=== PATIENT | female | born 1985 | race Caucasian/White ===

== ENCOUNTER 2016-03-20 10:22 | Emergency (ER) | payer OTHER ==
[~2016-03-20 10:22] MED LIST: CITA20TA4 PO; DRIS50002 PO; MOBI15TA PO; flexeril PO; no medications
--- NOTE | 2016-03-20 10:56 | EDDOCDS ---
Nurse's Notes [facility] Name: Jane Loredo Age: 30 yrs Sex: Female : 1985 Arrival Date: 03/20/2016 Time: 10:22 Bed TR8 Private MD: [facility] - Adults Diagnosis: Viral infection of unspecified site;Acute pharyngitis Presentation: 03/20 10:26 Presenting complaint: Patient states: "My throat is just burning for the past 2 days. jc4 I'm sick to my stomach and have a headache". Risk factors: Stridor is not present. Drooling is not present. Shortness of breath is not present. Cellulitis is not present. Adult Sepsis Screening: The patient does not have new or worsening altered mentation. Patient's respiratory rate is less than 22. Systolic blood pressure is greater than 100. Patient has a qSOFA score of 0- Negative Sepsis Screen. Suicide/Homicide risk assessment- the patient denies having any suicidal and/or homicidal ideations and does not present with any other emotional, behavioral or mental health complaints. Status: Patient is not a automotive services manager or dependent. Transition of care: patient was not received from another setting of care. 10:26 Acuity: ASIM Level 5 jc4 10:26 Method Of Arrival: Walkin/Carried/Asstd jc4 Triage Assessment: 10:27 General: Appears in no apparent distress. Pain: Pain currently is 9 out of 10 on a pain jc4 scale. HIV screening NA for this visit Offered previously. EENT: Reports pain when swallowing. CARVER HAND: 10:27 LMP 03/07/2016 jc4 Historical: - Allergies: no known allergies; - Home Meds: 1. none - PMHx: Gall Bladder Disease; - PSHx: Tubal ligation; Cholecystectomy (February 2016); - Social history: Smoking status: Patient states was never smoker of tobacco. No barriers to communication noted, The patient speaks fluent Canadian. - Family history: Not pertinent. - : The pt / caregiver states he / she is not on anticoagulants. Home medication list is obtained from the patient. - Exposure Risk Screening:: None identified. Screenin:53 Screening information is obtained from the patient. Primary language is Canadian. Fall dls risk: No risks identified. Assistance ADL's: requires no assistance with activities of daily living. Abuse/DV Screen: The patient / caregiver reports he/she is: not in a situation that causes fear, pain or injury. Nutritional screening: No deficits noted. Advance Directives: Currently, there is no health care proxy. There is no active DNR order. There is no living will. There is no Power of Table Operator. Advance directive information has not previously been placed in an [facility] medical record. home support is adequate. Assessment: 10:53 General: Appears in no apparent distress, well nourished, well groomed, Behavior is dls cooperative. Awake, alert, oriented. Skin warm and dry. Moves all extremities. Bilateral breath sounds clear. Respirations unlabored. Abdomen soft, non-tender. No apparent distress. The patient / caregiver is instructed regarding the plan of care and ED course. Vital Signs: 10:24 BP 127 / 78; Pulse 99; Resp 18; Temp 96.3; Pulse Ox 98% ; Weight 81.65 kg; Height 5 ft. elp 4 in. (162.56 cm); Pain 9/10; 10:24 Body Mass Index 30.90 (81.65 kg, 162.56 cm) elp Vitals: 10:24 Log In Time: March 20, 2016 at 10:21. elp 10:39 Strep Screen is obtained and tested: Negative, a GATSNEG culture is ordered in [facility] jc4 and sent. ED Course: 10:24 Patient visited by Frances Hutton PCA. elp 10:24 [facility] is Private Physician. elp 10:24 Patient moved to Waiting elp 10:26 Patient visited by Frances Hutton PCA. elp 10:26 Patient moved to Pre RCE elp 10:26 Triage Initiated jc4 10:28 Patient moved to Triage 3 jc4 10:38 [facility] btw 10:38 Rosi Mercer MD is Attending Physician. btw 10:38 Patient visited by Harlan Harris PA. btw 10:43 [facility] is Referral Physician. btw 10:45 [facility] Payment Agreement was scanned into [employer] and attached to record. lg 10:51 Patient moved to TR8 dls 10:53 Patient has correct armband on for positive identification. Bed in low position. Call dls light in reach. 10:54 No IV's were initiated during this patient's visit. No procedures done that require dls assistance. Order Results: There are currently no results for this order. Outcome: 10:44 Discharge ordered by Provider. btw 10:53 The following High Risk Discharge criteria are identified: None. Discharged to home dls ambulatory. Condition: stable. Discharge instructions given to patient, Instructed on discharge instructions, follow up and referral plans. medication usage, Demonstrated understanding of instructions, medications, Pt was receptive of discharge instructions/ teaching. No special radiology studies were completed. 10:54 Discharge Assessment: Patient awake, alert and oriented x 3. No cognitive and/or dls functional deficits noted. Patient verbalized understanding of disposition instructions. patient administered narcotics - no. Property sent home with patient. 10:55 Patient left the ED. dls Signatures: Patricia Zambrano, RN RN dls Alex Wick, Lance Reg lg Harlan Harris PA PA btw Castle, Jennifer, HERMINIA RN jc4 Frances Hutton, GEOVANY KNOCKER OUT elp MTDD
--- NOTE | 2016-03-20 10:56 | EDDOCDS ---
Physician Documentation [facility] Name: Jane Loredo Age: 30 yrs Sex: Female : 1985 Arrival Date: 03/20/2016 Time: 10:22 Bed TR8 Private MD: [facility] - Adults Disposition: 03/20/16 10:44 Discharged to Home/Self Care. Impression: Viral infection of unspecified site, Acute pharyngitis. - Condition is Stable. - Discharge Instructions: Pharyngitis, Zxvs-nj-Iuro, Viral Infections, Oedv-Tr-Syid. - Medication Reconciliation, Local Pharmacy Hours form. - Follow up: [facility] - Adults; When: Call to arrange an appointment; Reason: Further diagnostic work-up, Recheck today's complaints, Continuance of care. - Problem is new. - Symptoms are unchanged. Historical: - Allergies: no known allergies; - Home Meds: 1. none - PMHx: Gall Bladder Disease; - PSHx: Tubal ligation; Cholecystectomy (February 2016); - Social history: Smoking status: Patient states was never smoker of tobacco. No barriers to communication noted, The patient speaks fluent Thai. - Family history: Not pertinent. - : The pt / caregiver states he / she is not on anticoagulants. Home medication list is obtained from the patient. - Exposure Risk Screening:: None identified. 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 4 in. (162.56 cm); Pain 9/10; 10:24 Body Mass Index 30.90 (81.65 kg, 162.56 cm) elp MDM: 10:28 Strep Screen, Nursing ordered. btw 10:39 Financial registration complete. lg 10:40 GATS (NEGATIVE STREP SCREEN) Ordered. EDMS 10:45 [facility] Payment Agreement was scanned into [employer] and attached to record. lg Signatures: Dispatcher [employer] EDMS Patricia Zambrano RN RN Alex Weller, Lance Reg lg Harlan Harris PA PA btw Rowan Mohan RN RN jc4 The chart was reviewed and I authenticate all verbal orders and agree with the evaluation and treatment provided.Attachments: 10:45 [facility] Payment Agreement lg MTDD
--- NOTE | 2016-03-22 12:51 | EDDOCDS ---
Physician Documentation [facility] Name: Jane Loredo Age: 30 yrs Sex: Female : 1985 Arrival Date: 03/20/2016 Time: 10:22 Bed TR8 Private MD: [facility] - Adults Disposition: 03/20/16 10:44 Discharged to Home/Self Care. Impression: Viral infection of unspecified site, Acute pharyngitis. - Condition is Stable. - Discharge Instructions: Pharyngitis, Cats-yu-Ebaa, Viral Infections, Zvki-Jm-Jiqy. - Medication Reconciliation, Local Pharmacy Hours form. - Follow up: [facility] - Adults; When: Call to arrange an appointment; Reason: Further diagnostic work-up, Recheck today's complaints, Continuance of care. - Problem is new. - Symptoms are unchanged. Historical: - Allergies: no known allergies; - Home Meds: 1. none - PMHx: Gall Bladder Disease; - PSHx: Tubal ligation; Cholecystectomy (February 2016); - Social history: Smoking status: Patient states was never smoker of tobacco. No barriers to communication noted, The patient speaks fluent Latvian. - Family history: Not pertinent. - : The pt / caregiver states he / she is not on anticoagulants. Home medication list is obtained from the patient. - Exposure Risk Screening:: None identified. 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 4 in. (162.56 cm); Pain 9/10; 10:24 Body Mass Index 30.90 (81.65 kg, 162.56 cm) elp MDM: 10:28 Strep Screen, Nursing ordered. btw 10:39 Financial registration complete. lg 10:40 GATS (NEGATIVE STREP SCREEN) Ordered. EDMS 10:45 [facility] Payment Agreement was scanned into [employer] and attached to record. lg 11:50 T-Sheet-- Draft Copy was scanned into [employer] and attached to record. [facility] Signatures: Dispatcher [employer] EDMS Patricia Zambrano RN Alex Woodward, Reg Reg lg Harlan Harris PA PA btw Castle, Jennifer, RN RN jc4 Brooklyn Levine The chart was reviewed and I authenticate all verbal orders and agree with the evaluation and treatment provided.Attachments: 10:45 [facility] Payment Agreement lg 11:50 T-Sheet-- Draft Copy [facility] MTDD
--- NOTE | 2016-03-22 12:51 | EDDOCDS ---
Physician Documentation [facility] Name: Jane Loredo Age: 30 yrs Sex: Female : 1985 Arrival Date: 03/20/2016 Time: 10:22 Bed TR8 Private MD: [facility] - Adults Disposition: 03/20/16 10:44 Discharged to Home/Self Care. Impression: Viral infection of unspecified site, Acute pharyngitis. - Condition is Stable. - Discharge Instructions: Pharyngitis, Tkbg-fe-Ltaj, Viral Infections, Iddv-La-Oiaw. - Medication Reconciliation, Local Pharmacy Hours form. - Follow up: [facility] - Adults; When: Call to arrange an appointment; Reason: Further diagnostic work-up, Recheck today's complaints, Continuance of care. - Problem is new. - Symptoms are unchanged. Historical: - Allergies: no known allergies; - Home Meds: 1. none - PMHx: Gall Bladder Disease; - PSHx: Tubal ligation; Cholecystectomy (February 2016); - Social history: Smoking status: Patient states was never smoker of tobacco. No barriers to communication noted, The patient speaks fluent Uzbek. - Family history: Not pertinent. - : The pt / caregiver states he / she is not on anticoagulants. Home medication list is obtained from the patient. - Exposure Risk Screening:: None identified. 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 4 in. (162.56 cm); Pain 9/10; 10:24 Body Mass Index 30.90 (81.65 kg, 162.56 cm) elp MDM: 10:28 Strep Screen, Nursing ordered. btw 10:39 Financial registration complete. lg 10:40 GATS (NEGATIVE STREP SCREEN) Ordered. EDMS 10:45 [facility] Payment Agreement was scanned into [employer] and attached to record. lg 11:50 T-Sheet-- Draft Copy was scanned into [employer] and attached to record. [facility] Signatures: Dispatcher [employer] EDMS Patricia Zambrano RN Alex Woodward, Reg Reg lg Harlan Harris PA PA btw Castle, Jennifer, RN RN jc4 Brooklyn Levine The chart was reviewed and I authenticate all verbal orders and agree with the evaluation and treatment provided.Attachments: 10:45 [facility] Payment Agreement lg 11:50 T-Sheet-- Draft Copy [facility] MTDD
--- NOTE | 2016-03-22 12:51 | EDDOCDS ---
Nurse's Notes [facility] Name: Jane Loredo Age: 30 yrs Sex: Female : 1985 Arrival Date: 03/20/2016 Time: 10:22 Bed TR8 Private MD: [facility] - Adults Diagnosis: Viral infection of unspecified site;Acute pharyngitis Presentation: 03/20 10:26 Presenting complaint: Patient states: "My throat is just burning for the past 2 days. jc4 I'm sick to my stomach and have a headache". Risk factors: Stridor is not present. Drooling is not present. Shortness of breath is not present. Cellulitis is not present. Adult Sepsis Screening: The patient does not have new or worsening altered mentation. Patient's respiratory rate is less than 22. Systolic blood pressure is greater than 100. Patient has a qSOFA score of 0- Negative Sepsis Screen. Suicide/Homicide risk assessment- the patient denies having any suicidal and/or homicidal ideations and does not present with any other emotional, behavioral or mental health complaints. Status: Patient is not a foreign exchange services manager or dependent. Transition of care: patient was not received from another setting of care. 10:26 Acuity: ASIM Level 5 jc4 10:26 Method Of Arrival: Walkin/Carried/Asstd jc4 Triage Assessment: 10:27 General: Appears in no apparent distress. Pain: Pain currently is 9 out of 10 on a pain jc4 scale. HIV screening NA for this visit Offered previously. EENT: Reports pain when swallowing. 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 none - PMHx: Gall Bladder Disease; - PSHx: Tubal ligation; Cholecystectomy (February 2016); - Social history: Smoking status: Patient states was never smoker of tobacco. No barriers to communication noted, The patient speaks fluent Danish. - Family history: Not pertinent. - : The pt / caregiver states he / she is not on anticoagulants. Home medication list is obtained from the patient. - Exposure Risk Screening:: None identified. Screenin:53 Screening information is obtained from the patient. Primary language is Danish. Fall dls risk: No risks identified. Assistance ADL's: requires no assistance with activities of daily living. Abuse/DV Screen: The patient / caregiver reports he/she is: not in a situation that causes fear, pain or injury. Nutritional screening: No deficits noted. Advance Directives: Currently, there is no health care proxy. There is no active DNR order. There is no living will. There is no Power of Pattern And Chain Maker. Advance directive information has not previously been placed in an [facility] medical record. home support is adequate. Assessment: 10:53 General: Appears in no apparent distress, well nourished, well groomed, Behavior is dls cooperative. Awake, alert, oriented. Skin warm and dry. Moves all extremities. Bilateral breath sounds clear. Respirations unlabored. Abdomen soft, non-tender. No apparent distress. The patient / caregiver is instructed regarding the plan of care and ED course. Vital Signs: 10:24 BP 127 / 78; Pulse 99; Resp 18; Temp 96.3; Pulse Ox 98% ; Weight 81.65 kg; Height 5 ft. elp 4 in. (162.56 cm); Pain 9/10; 10:24 Body Mass Index 30.90 (81.65 kg, 162.56 cm) elp Vitals: 10:24 Log In Time: March 20, 2016 at 10:21. elp 10:39 Strep Screen is obtained and tested: Negative, a GATSNEG culture is ordered in [facility] jc4 and sent. ED Course: 10:24 Patient visited by Frances Hutton PCA. elp 10:24 [facility] is Private Physician. elp 10:24 Patient moved to Waiting elp 10:26 Patient visited by Frances Hutton PCA. elp 10:26 Patient moved to Pre RCE elp 10:26 Triage Initiated jc4 10:28 Patient moved to Triage 3 jc4 10:38 [facility] btw 10:38 Rosi Mercer MD is Attending Physician. btw 10:38 Patient visited by Harlan Harris PA. btw 10:43 [facility] is Referral Physician. btw 10:45 [facility] Payment Agreement was scanned into [employer] and attached to record. lg 10:51 Patient moved to TR8 dls 10:53 Patient has correct armband on for positive identification. Bed in low position. Call dls light in reach. 10:54 No IV's were initiated during this patient's visit. No procedures done that require dls assistance. 11:50 T-Sheet-- Draft Copy was scanned into [employer] and attached to record. [facility] Order Results: Lab Order: GATS (NEGATIVE STREP SCREEN); SPEC'M 03/20/16 10:30 Test: GATS CULTURE (NEG STREP SCR); Value: GATS RESULT POSITIVE FOR STREP PYOGENES (GROUP A); Abnormal: Abnormal; Status: F Test: GATS CULTURE (NEG STREP SCR); Value: ORGANISM 1: STREPTOCOCCUS PYOGENES GRP A; Status: F Test: GATS CULTURE (NEG STREP SCR); Value: STREPTOCOCCUS PYOGENES GRP A; Status: F Test: GATS CULTURE (NEG STREP SCR); Value: QUANTITY OF GROWTH HEAVY; Status: F Outcome: 10:44 Discharge ordered by Provider. btw 10:53 The following High Risk Discharge criteria are identified: None. Discharged to home dls ambulatory. Condition: stable. Discharge instructions given to patient, Instructed on discharge instructions, follow up and referral plans. medication usage, Demonstrated understanding of instructions, medications, Pt was receptive of discharge instructions/ teaching. No special radiology studies were completed. 10:54 Discharge Assessment: Patient awake, alert and oriented x 3. No cognitive and/or dls functional deficits noted. Patient verbalized understanding of disposition instructions. patient administered narcotics - no. Property sent home with patient. 10:55 Patient left the ED. dls Addendum: 03/22/2016 12:49 Narrative: Throat culture results reviewed with Dr. Mendieta and Rx written for Amoxil kcs 500 mg TID x 10 days - message left at patient's home ([phone]) for patient to call us so we can call this to the pharmacy of her choice. Signatures: Hiral Guerra RN RN kcs Scott, Debra, RN RN dls Ganter, LoriLee, Harlan Goldberg lg, PA PA btw Castle, Jennifer, RN RN jc4 Frances Hutton, GEOVANY BEEF TAGGER Brooklyn Moon MTDD
--- NOTE | 2016-03-22 12:57 | EDDOCDS ---
Physician Documentation [facility] Name: Jane Loredo Age: 30 yrs Sex: Female : 1985 Arrival Date: 03/20/2016 Time: 10:22 Bed TR8 Private MD: [facility] - Adults Disposition: 03/20/16 10:44 Discharged to Home/Self Care. Impression: Viral infection of unspecified site, Acute pharyngitis. - Condition is Stable. - Discharge Instructions: Pharyngitis, Anul-sg-Anbt, Viral Infections, Lzpf-Vq-Sygu. - Medication Reconciliation, Local Pharmacy Hours form. - Follow up: [facility] - Adults; When: Call to arrange an appointment; Reason: Further diagnostic work-up, Recheck today's complaints, Continuance of care. - Problem is new. - Symptoms are unchanged. Historical: - Allergies: no known allergies; - Home Meds: 1. none - PMHx: Gall Bladder Disease; - PSHx: Tubal ligation; Cholecystectomy (February 2016); - Social history: Smoking status: Patient states was never smoker of tobacco. No barriers to communication noted, The patient speaks fluent Faroese. - Family history: Not pertinent. - : The pt / caregiver states he / she is not on anticoagulants. Home medication list is obtained from the patient. - Exposure Risk Screening:: None identified. 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 4 in. (162.56 cm); Pain 9/10; 10:24 Body Mass Index 30.90 (81.65 kg, 162.56 cm) elp MDM: 10:28 Strep Screen, Nursing ordered. btw 10:39 Financial registration complete. lg 10:40 GATS (NEGATIVE STREP SCREEN) Ordered. EDMS 10:45 [facility] Payment Agreement was scanned into [employer] and attached to record. lg 11:50 T-Sheet-- Draft Copy was scanned into [employer] and attached to record. [facility] Signatures: Dispatcher [employer] EDMS Patricia Zambrano RN Alex Woodward, Reg Reg lg Harlan Harris PA PA btw Castle, Jennifer, RN RN jc4 Brooklyn Levine The chart was reviewed and I authenticate all verbal orders and agree with the evaluation and treatment provided.Attachments: 10:45 [facility] Payment Agreement lg 11:50 T-Sheet-- Draft Copy [facility] MTDD
--- NOTE | 2016-03-22 12:57 | EDDOCDS ---
Physician Documentation [facility] Name: Jane Loredo Age: 30 yrs Sex: Female : 1985 Arrival Date: 03/20/2016 Time: 10:22 Bed TR8 Private MD: [facility] - Adults Disposition: 03/20/16 10:44 Discharged to Home/Self Care. Impression: Viral infection of unspecified site, Acute pharyngitis. - Condition is Stable. - Discharge Instructions: Pharyngitis, Tpwd-zp-Wasx, Viral Infections, Rnqx-Ri-Qppz. - Medication Reconciliation, Local Pharmacy Hours form. - Follow up: [facility] - Adults; When: Call to arrange an appointment; Reason: Further diagnostic work-up, Recheck today's complaints, Continuance of care. - Problem is new. - Symptoms are unchanged. Historical: - Allergies: no known allergies; - Home Meds: 1. none - PMHx: Gall Bladder Disease; - PSHx: Tubal ligation; Cholecystectomy (February 2016); - Social history: Smoking status: Patient states was never smoker of tobacco. No barriers to communication noted, The patient speaks fluent Korean. - Family history: Not pertinent. - : The pt / caregiver states he / she is not on anticoagulants. Home medication list is obtained from the patient. - Exposure Risk Screening:: None identified. 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 4 in. (162.56 cm); Pain 9/10; 10:24 Body Mass Index 30.90 (81.65 kg, 162.56 cm) elp MDM: 10:28 Strep Screen, Nursing ordered. btw 10:39 Financial registration complete. lg 10:40 GATS (NEGATIVE STREP SCREEN) Ordered. EDMS 10:45 [facility] Payment Agreement was scanned into [employer] and attached to record. lg 11:50 T-Sheet-- Draft Copy was scanned into [employer] and attached to record. [facility] Signatures: Dispatcher [employer] EDMS Patricia Zambrano RN Alex Woodward, Reg Reg lg Harlan Harris PA PA btw Castle, Jennifer, RN RN jc4 Brooklyn Levine The chart was reviewed and I authenticate all verbal orders and agree with the evaluation and treatment provided.Attachments: 10:45 [facility] Payment Agreement lg 11:50 T-Sheet-- Draft Copy [facility] MTDD
--- NOTE | 2016-03-22 12:57 | EDDOCDS ---
Nurse's Notes [facility] Name: Jane Loredo Age: 30 yrs Sex: Female : 1985 Arrival Date: 03/20/2016 Time: 10:22 Bed TR8 Private MD: [facility] - Adults Diagnosis: Viral infection of unspecified site;Acute pharyngitis Presentation: 03/20 10:26 Presenting complaint: Patient states: "My throat is just burning for the past 2 days. jc4 I'm sick to my stomach and have a headache". Risk factors: Stridor is not present. Drooling is not present. Shortness of breath is not present. Cellulitis is not present. Adult Sepsis Screening: The patient does not have new or worsening altered mentation. Patient's respiratory rate is less than 22. Systolic blood pressure is greater than 100. Patient has a qSOFA score of 0- Negative Sepsis Screen. Suicide/Homicide risk assessment- the patient denies having any suicidal and/or homicidal ideations and does not present with any other emotional, behavioral or mental health complaints. Status: Patient is not a financial service representative or dependent. Transition of care: patient was not received from another setting of care. 10:26 Acuity: ASIM Level 5 jc4 10:26 Method Of Arrival: Walkin/Carried/Asstd jc4 Triage Assessment: 10:27 General: Appears in no apparent distress. Pain: Pain currently is 9 out of 10 on a pain jc4 scale. HIV screening NA for this visit Offered previously. EENT: Reports pain when swallowing. 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 none - PMHx: Gall Bladder Disease; - PSHx: Tubal ligation; Cholecystectomy (February 2016); - Social history: Smoking status: Patient states was never smoker of tobacco. No barriers to communication noted, The patient speaks fluent [place] Islander. - Family history: Not pertinent. - : The pt / caregiver states he / she is not on anticoagulants. Home medication list is obtained from the patient. - Exposure Risk Screening:: None identified. Screenin:53 Screening information is obtained from the patient. Primary language is [place] Islander. Fall dls risk: No risks identified. Assistance ADL's: requires no assistance with activities of daily living. Abuse/DV Screen: The patient / caregiver reports he/she is: not in a situation that causes fear, pain or injury. Nutritional screening: No deficits noted. Advance Directives: Currently, there is no health care proxy. There is no active DNR order. There is no living will. There is no Power of Director Foundation. Advance directive information has not previously been placed in an [facility] medical record. home support is adequate. Assessment: 10:53 General: Appears in no apparent distress, well nourished, well groomed, Behavior is dls cooperative. Awake, alert, oriented. Skin warm and dry. Moves all extremities. Bilateral breath sounds clear. Respirations unlabored. Abdomen soft, non-tender. No apparent distress. The patient / caregiver is instructed regarding the plan of care and ED course. Vital Signs: 10:24 BP 127 / 78; Pulse 99; Resp 18; Temp 96.3; Pulse Ox 98% ; Weight 81.65 kg; Height 5 ft. elp 4 in. (162.56 cm); Pain 9/10; 10:24 Body Mass Index 30.90 (81.65 kg, 162.56 cm) elp Vitals: 10:24 Log In Time: March 20, 2016 at 10:21. elp 10:39 Strep Screen is obtained and tested: Negative, a GATSNEG culture is ordered in [facility] jc4 and sent. ED Course: 10:24 Patient visited by Frances Hutton PCA. elp 10:24 [facility] is Private Physician. elp 10:24 Patient moved to Waiting elp 10:26 Patient visited by Frances Hutton PCA. elp 10:26 Patient moved to Pre RCE elp 10:26 Triage Initiated jc4 10:28 Patient moved to Triage 3 jc4 10:38 [facility] btw 10:38 Rosi Mercer MD is Attending Physician. btw 10:38 Patient visited by Harlan Harris PA. btw 10:43 [facility] is Referral Physician. btw 10:45 [facility] Payment Agreement was scanned into [email or web address] and attached to record. lg 10:51 Patient moved to TR8 dls 10:53 Patient has correct armband on for positive identification. Bed in low position. Call dls light in reach. 10:54 No IV's were initiated during this patient's visit. No procedures done that require dls assistance. 11:50 T-Sheet-- Draft Copy was scanned into [email or web address] and attached to record. [facility] Order Results: Lab Order: GATS (NEGATIVE STREP SCREEN); SPEC'M 03/20/16 10:30 Test: GATS CULTURE (NEG STREP SCR); Value: GATS RESULT POSITIVE FOR STREP PYOGENES (GROUP A); Abnormal: Abnormal; Status: F Test: GATS CULTURE (NEG STREP SCR); Value: ORGANISM 1: STREPTOCOCCUS PYOGENES GRP A; Status: F Test: GATS CULTURE (NEG STREP SCR); Value: STREPTOCOCCUS PYOGENES GRP A; Status: F Test: GATS CULTURE (NEG STREP SCR); Value: QUANTITY OF GROWTH HEAVY; Status: F Outcome: 10:44 Discharge ordered by Provider. bt 10:53 The following High Risk Discharge criteria are identified: None. Discharged to home dls ambulatory. Condition: stable. Discharge instructions given to patient, Instructed on discharge instructions, follow up and referral plans. medication usage, Demonstrated understanding of instructions, medications, Pt was receptive of discharge instructions/ teaching. No special radiology studies were completed. 10:54 Discharge Assessment: Patient awake, alert and oriented x 3. No cognitive and/or dls functional deficits noted. Patient verbalized understanding of disposition instructions. patient administered narcotics - no. Property sent home with patient. 10:55 Patient left the ED. dls Addendum: 03/22/2016 12:49 Narrative: Throat culture results reviewed with Dr. Mendieta and Rx written for Amoxil kcs 500 mg TID x 10 days - message left at patient's home ([phone]) for patient to call us so we can call this to the pharmacy of her choice. 12:54 Narrative: Patient called back, given results and requests [facility] in [facility]. kcs Signatures: Hiral Guerra RN RN kcs Scott, Debra, RN RN dls Ganter, LoriLee, Harlan Goldberg lg, PA PA btw Castle, Jennifer, RN RN jc4 Frances Hutton, WELL DIGGER WELL DIGGER phoebep [place] [facility] MTDD
--- NOTE | 2016-03-23 10:50 | EDDOCDS ---
Nurse's Notes [facility] Name: Jane Loredo Age: 30 yrs Sex: Female : 1985 Arrival Date: 03/20/2016 Time: 10:22 Bed TR8 Private MD: [facility] - Adults Diagnosis: Viral infection of unspecified site;Acute pharyngitis Presentation: 03/20 10:26 Presenting complaint: Patient states: "My throat is just burning for the past 2 days. jc4 I'm sick to my stomach and have a headache". Risk factors: Stridor is not present. Drooling is not present. Shortness of breath is not present. Cellulitis is not present. Adult Sepsis Screening: The patient does not have new or worsening altered mentation. Patient's respiratory rate is less than 22. Systolic blood pressure is greater than 100. Patient has a qSOFA score of 0- Negative Sepsis Screen. Suicide/Homicide risk assessment- the patient denies having any suicidal and/or homicidal ideations and does not present with any other emotional, behavioral or mental health complaints. Status: Patient is not a in shop service technician or dependent. Transition of care: patient was not received from another setting of care. 10:26 Acuity: ASIM Level 5 jc4 10:26 Method Of Arrival: Walkin/Carried/Asstd jc4 Triage Assessment: 10:27 General: Appears in no apparent distress. Pain: Pain currently is 9 out of 10 on a pain jc4 scale. HIV screening NA for this visit Offered previously. EENT: Reports pain when swallowing. 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 none - PMHx: Gall Bladder Disease; - PSHx: Tubal ligation; Cholecystectomy (February 2016); - Social history: Smoking status: Patient states was never smoker of tobacco. No barriers to communication noted, The patient speaks fluent Bhutanese. - Family history: Not pertinent. - : The pt / caregiver states he / she is not on anticoagulants. Home medication list is obtained from the patient. - Exposure Risk Screening:: None identified. Screenin:53 Screening information is obtained from the patient. Primary language is Bhutanese. Fall dls risk: No risks identified. Assistance ADL's: requires no assistance with activities of daily living. Abuse/DV Screen: The patient / caregiver reports he/she is: not in a situation that causes fear, pain or injury. Nutritional screening: No deficits noted. Advance Directives: Currently, there is no health care proxy. There is no active DNR order. There is no living will. There is no Power of Marina Manager. Advance directive information has not previously been placed in an [facility] medical record. home support is adequate. Assessment: 10:53 General: Appears in no apparent distress, well nourished, well groomed, Behavior is dls cooperative. Awake, alert, oriented. Skin warm and dry. Moves all extremities. Bilateral breath sounds clear. Respirations unlabored. Abdomen soft, non-tender. No apparent distress. The patient / caregiver is instructed regarding the plan of care and ED course. Vital Signs: 10:24 BP 127 / 78; Pulse 99; Resp 18; Temp 96.3; Pulse Ox 98% ; Weight 81.65 kg; Height 5 ft. elp 4 in. (162.56 cm); Pain 9/10; 10:24 Body Mass Index 30.90 (81.65 kg, 162.56 cm) elp Vitals: 10:24 Log In Time: March 20, 2016 at 10:21. elp 10:39 Strep Screen is obtained and tested: Negative, a GATSNEG culture is ordered in [facility] jc4 and sent. ED Course: 10:24 Patient visited by Frances Hutton PCA. elp 10:24 [facility] is Private Physician. elp 10:24 Patient moved to Waiting elp 10:26 Patient visited by Frances Hutton PCA. elp 10:26 Patient moved to Pre RCE elp 10:26 Triage Initiated jc4 10:28 Patient moved to Triage 3 jc4 10:38 [facility] Harris [facility]. btw 10:38 Rosi Mercer MD is Attending Physician. btw 10:38 Patient visited by Harlan Harris PA. btw 10:43 [facility] is Referral Physician. btw 10:45 [facility] Payment Agreement was scanned into Trump[employer] and attached to record. lg 10:51 Patient moved to TR8 dls 10:53 Patient has correct armband on for positive identification. Bed in low position. Call dls light in reach. 10:54 No IV's were initiated during this patient's visit. No procedures done that require dls assistance. 11:50 T-Sheet-- Draft Copy was scanned into [employer] and attached to record. [facility] Order Results: Lab Order: GATS (NEGATIVE STREP SCREEN); SPEC'M 03/20/16 10:30 Test: GATS CULTURE (NEG STREP SCR); Value: GATS RESULT POSITIVE FOR STREP PYOGENES (GROUP A); Abnormal: Abnormal; Status: F Test: GATS CULTURE (NEG STREP SCR); Value: ORGANISM 1: STREPTOCOCCUS PYOGENES GRP A; Status: F Test: GATS CULTURE (NEG STREP SCR); Value: STREPTOCOCCUS PYOGENES GRP A; Status: F Test: GATS CULTURE (NEG STREP SCR); Value: QUANTITY OF GROWTH HEAVY; Status: F Outcome: 10:44 Discharge ordered by Provider. bt 10:53 The following High Risk Discharge criteria are identified: None. Discharged to home dls ambulatory. Condition: stable. Discharge instructions given to patient, Instructed on discharge instructions, follow up and referral plans. medication usage, Demonstrated understanding of instructions, medications, Pt was receptive of discharge instructions/ teaching. No special radiology studies were completed. 10:54 Discharge Assessment: Patient awake, alert and oriented x 3. No cognitive and/or dls functional deficits noted. Patient verbalized understanding of disposition instructions. patient administered narcotics - no. Property sent home with patient. 10:55 Patient left the ED. dls Addendum: 03/22/2016 12:49 Narrative: Throat culture results reviewed with Dr. Mendieta and Rx written for Amoxil kcs 500 mg TID x 10 days - message left at patient's home ([phone]) for patient to call us so we can call this to the pharmacy of her choice. 12:54 Narrative: Patient called back, given results and requests [facility] in [facility]. kcs Signatures: Hiral Guerra RN RN kcs Scott, Debra, RN RN dls Ganter, LoriLee, Harlan Goldberg lg, PA PA btw Castle, Jennifer, RN RN jc4 Frances Hutton, APPLIANCE TECHNICIAN APPLIANCE TECHNICIAN phoebep [place] Levine [facility] Chart Complete MTDD
--- NOTE | 2016-03-23 10:50 | EDDOCDS ---
Physician Documentation [facility] Name: Jaen Loredo Age: 30 yrs Sex: Female : 1985 Arrival Date: 03/20/2016 Time: 10:22 Bed TR8 Private MD: [facility] - Adults Disposition: 03/20/16 10:44 Discharged to Home/Self Care. Impression: Viral infection of unspecified site, Acute pharyngitis. - Condition is Stable. - Discharge Instructions: Pharyngitis, Bjic-[id number], Viral Infections, Anef-Ci-Nlay. - Medication Reconciliation, Local Pharmacy Hours form. - Follow up: [facility] - Adults; When: Call to arrange an appointment; Reason: Further diagnostic work-up, Recheck today's complaints, Continuance of care. - Problem is new. - Symptoms are unchanged. Historical: - Allergies: no known allergies; - Home Meds: 1. none - PMHx: Gall Bladder Disease; - PSHx: Tubal ligation; Cholecystectomy (February 2016); - Social history: Smoking status: Patient states was never smoker of tobacco. No barriers to communication noted, The patient speaks fluent Serbian. - Family history: Not pertinent. - : The pt / caregiver states he / she is not on anticoagulants. Home medication list is obtained from the patient. - Exposure Risk Screening:: None identified. 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 4 in. (162.56 cm); Pain 9/10; 10:24 Body Mass Index 30.90 (81.65 kg, 162.56 cm) elp MDM: 10:28 Strep Screen, Nursing ordered. btw 10:39 Financial registration complete. lg 10:40 GATS (NEGATIVE STREP SCREEN) Ordered. EDMS 10:45 [facility] Payment Agreement was scanned into Vill[employer] and attached to record. lg 11:50 T-Sheet-- Draft Copy was scanned into Vill[employer] and attached to record. [facility] Signatures: Dispatcher Med[employer] EDMS Patricia Zambrano RN Alex Woodward, Reg Reg lg Harlan Harris PA PA btw Castle, Jennifer, RN RN jc4 [place] Levine The chart was reviewed and I authenticate all verbal orders and agree with the evaluation and treatment provided.Attachments: 10:45 [facility] Payment Agreement lg 11:50 T-Sheet-- Draft Copy [facility] Chart Complete MTDD
--- NOTE | 2016-03-23 10:51 | EDDOCDS ---
Physician Documentation [facility] Name: Jane Loredo Age: 30 yrs Sex: Female : 1985 Arrival Date: 03/20/2016 Time: 10:22 Bed TR8 Private MD: [facility] - Adults Disposition: 03/20/16 10:44 Discharged to Home/Self Care. Impression: Viral infection of unspecified site, Acute pharyngitis. - Condition is Stable. - Discharge Instructions: Pharyngitis, Jkpp-[id number], Viral Infections, Sebr-Cq-Ddjd. - Medication Reconciliation, Local Pharmacy Hours form. - Follow up: [facility] - Adults; When: Call to arrange an appointment; Reason: Further diagnostic work-up, Recheck today's complaints, Continuance of care. - Problem is new. - Symptoms are unchanged. Historical: - Allergies: no known allergies; - Home Meds: 1. none - PMHx: Gall Bladder Disease; - PSHx: Tubal ligation; Cholecystectomy (February 2016); - Social history: Smoking status: Patient states was never smoker of tobacco. No barriers to communication noted, The patient speaks fluent Spanish. - Family history: Not pertinent. - : The pt / caregiver states he / she is not on anticoagulants. Home medication list is obtained from the patient. - Exposure Risk Screening:: None identified. 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 4 in. (162.56 cm); Pain 9/10; 10:24 Body Mass Index 30.90 (81.65 kg, 162.56 cm) elp MDM: 10:28 Strep Screen, Nursing ordered. btw 10:39 Financial registration complete. lg 10:40 GATS (NEGATIVE STREP SCREEN) Ordered. EDMS 10:45 [facility] Payment Agreement was scanned into Palette and attached to record. lg 11:50 T-Sheet-- Draft Copy was scanned into Palette and attached to record. [facility] Signatures: Dispatcher [employer] EDMS Patricia Zambrano RN Alex Woodward, Reg Reg lg Harlan Harris PA PA btw Castle, Jennifer, RN RN jc4 [place] Levine The chart was reviewed and I authenticate all verbal orders and agree with the evaluation and treatment provided.Attachments: 10:45 [facility] Payment Agreement lg 11:50 T-Sheet-- Draft Copy [facility] Chart Complete MTDD
== END 2016-03-20 10:55 | disposition home or self-care (01) ==
LOC: M ED 10:22
DX: J02.9 Acute pharyngitis, unspecified (principal); B34.9 Viral infection, unspecified; F17.210 Nicotine dependence, cigarettes, uncomplicated

== ENCOUNTER 2016-04-25 13:38 | Emergency (ER) | payer OTHER ==
[2016-04-25] MEDS ORDERED: GI COCKTAIL 50ML BTL(HYOSCYAMINE/MAALOX/LIDOCAINE VISCOUS)(1:3:1) As Ordered ONE (14:02)
--- NOTE | 2016-04-25 14:22 | EDDOCDS ---
Nurse's Notes [facility] Name: Jane Loredo Age: 30 yrs Sex: Female : 1985 Arrival Date: 04/25/2016 Time: 13:38 Bed TR7 Private MD: Diagnosis: Abdominal and pelvic pain-epigastric;Gastro-esophageal reflux disease Presentation: 04/25 13:41 Presenting complaint: Patient states: abdominal pain for 4 days. denies rs3 vomiting/diarrhea. radiates to lower back. Risk factors: the patient reports no vaginal bleeding. Adult Sepsis Screening: The patient does not have new or worsening altered mentation. Patient's respiratory rate is less than 22. Systolic blood pressure is greater than 100. Patient has a qSOFA score of 0- Negative Sepsis Screen. Suicide/Homicide risk assessment- the patient denies having any suicidal and/or homicidal ideations and does not present with any other emotional, behavioral or mental health complaints. Status: Patient is not a telephone answering service operator or dependent. Transition of care: patient was not received from another setting of care. 13:41 Acuity: ASIM Level 3 rs3 13:41 Method Of Arrival: Walkin/Carried/Asstd rs3 Triage Assessment: 13:43 General: Appears in no apparent distress. Pain: Location: abdomen. HIV screening NA for rs3 this visit Offered previously. GI: Reports lower abdominal pain, upper abd pain. Historical: - Allergies: no known allergies; - Home Meds: 1. none - PMHx: none; - PSHx: Tubal ligation; Cholecystectomy (February 2016); - Social history: Smoking status: Patient states was never smoker of tobacco. No barriers to communication noted, The patient speaks fluent Yemeni. - Family history: Not pertinent. - : The pt / caregiver states he / she is not on anticoagulants. Home medication list is obtained from the patient. - Exposure Risk Screening:: None identified. Screenin:19 Screening information is obtained from the patient. Fall risk: No risks identified. pml Assistance ADL's: requires no assistance with activities of daily living. Abuse/DV Screen: The patient / caregiver reports he/she is: not in a situation that causes fear, pain or injury. Nutritional screening: No deficits noted. Advance Directives: Currently, there is no health care proxy. home support is adequate. Assessment: 14:05 General: Appears in no apparent distress, Behavior is appropriate for age, cooperative. pml Pain: Location: abdomen Pain currently is 6 out of 10 on a pain scale. Neurological: Level of Consciousness is awake, alert, Oriented to person, place, time. Cardiovascular: Capillary refill < 3 seconds. Respiratory: Airway is patent Respiratory effort is even, unlabored. GI: Abdomen is non- distended obese, Bowel sounds present X 4 quads. Abd is soft X 4 quads. Derm: Skin is pink, warm & dry. Vital Signs: 13:40 BP 117 / 76 RA Sitting (auto/lg); Pulse 85; Resp 18; Temp 98.5; Pulse Ox 98% on R/A; bnb Weight 81.65 kg; Height 5 ft. 4 in. (162.56 cm); Pain 7/10; 13:40 Body Mass Index 30.90 (81.65 kg, 162.56 cm) bnb Vitals: 13:40 Log In Time: April 25, 2016 at 13:38. bnb ED Course: 13:39 Patient visited by Jenifer Duarte PCA. bnb 13:39 Patient moved to Waiting bnb 13:41 Patient visited by Jenifer Duarte PCA. bnb 13:41 Patient moved to Pre RCE bnb 13:42 Triage Initiated rs3 13:43 Patient moved to Triage 3 rs3 13:48 [facility] Hammond [facility] cc10 13:48 Rosi Mercer MD is Attending Physician. cc10 13:55 Patient visited by Eliazar Hammond PA-C. cc10 13:55 Patient visited by Eliazar Hammond PA-C. cc10 14:08 Patient moved to TR7 ar3 14:19 The patient / caregiver is instructed regarding the plan of care and ED course. Patient pml has correct armband on for positive identification. Bed in low position. Call light in reach. 14:19 No IV's were initiated during this patient's visit. No procedures done that require pml assistance. Administered Medications: 14:04 Drug: GI Cocktail - (Alum-Mag Hydroxide-Simeth Suspension 225 mg-200 mg-25 mg/5 mL 30 pml ml, Lidocaine Liquid 2 % 10 ml, Hyoscyamine Liquid 10 ml) Route: PO; Order Results: There are currently no results for this order. Outcome: 14:00 Discharge ordered by Provider. cc10 14:19 Discharge Assessment: Patient awake, alert and oriented x 3. No cognitive and/or pml functional deficits noted. Patient verbalized understanding of disposition instructions. patient administered narcotics - no. The following High Risk Discharge criteria are identified: None. Discharged to home ambulatory. Condition: good Condition: stable. Discharge instructions given to patient, Instructed on discharge instructions, follow up and referral plans. medication usage, Demonstrated understanding of instructions, medications, Pt was receptive of discharge instructions/ teaching. No special radiology studies were completed. Property sent home with patient. 14:20 Patient left the ED. pml Signatures: Shantel BradenRN RN rs3 Danii Ahn, TITLE INVESTIGATOR TITLE INVESTIGATOR ar3 Marzena StormRN RN pml Eliazar Hammond, PA-C PA-C cc10 Jenifer Duarte, TITLE INVESTIGATOR TITLE INVESTIGATOR bnb MTDD
--- NOTE | 2016-04-25 14:22 | EDDOCDS ---
Physician Documentation [facility] Name: Jane Loredo Age: 30 yrs Sex: Female : 1985 Arrival Date: 04/25/2016 Time: 13:38 Bed TR7 Private MD: Disposition: 04/25/16 14:00 Discharged to Home/Self Care. Impression: Abdominal and pelvic pain - epigastric, Gastro-esophageal reflux disease. - Condition is Stable. - Discharge Instructions: Gastroesophageal Reflux Disease, Adult. - Prescriptions for Zantac 300 mg Oral Tablet - take 1 tablet by ORAL route At bedtime; 30 tablet. - Local Pharmacy Hours form. - Follow up: Private Physician; When: Call to arrange an appointment; Reason: Wound/Symptom Recheck, Recheck today's complaints, Worsening of conditions, Continuance of care. - Problem is an ongoing problem. - Symptoms are unchanged. Historical: - Allergies: no known allergies; - Home Meds: 1. none - PMHx: none; - PSHx: Tubal ligation; Cholecystectomy (February 2016); - Social history: Smoking status: Patient states was never smoker of tobacco. No barriers to communication noted, The patient speaks fluent Kitt[place]. - Family history: Not pertinent. - : The pt / caregiver states he / she is not on anticoagulants. Home medication list is obtained from the patient. - Exposure Risk Screening:: None identified. Vital Signs: 04/25 13:40 BP 117 / 76 RA Sitting (auto/lg); Pulse 85; Resp 18; Temp 98.5; Pulse Ox 98% on R/A; bnb Weight 81.65 kg / 180.01 lbs; Height 5 ft. 4 in. (162.56 cm); Pain 7/10; 13:40 Body Mass Index 30.90 (81.65 kg, 162.56 cm) bnb MDM: 13:59 GI Cocktail - (Alum-Mag Hydroxide-Simeth 30 ml, Lidocaine 10 ml, Hyoscyamine 10 ml) PO cc10 once; Pre-mixed 50mL unit dose ordered. 14:06 Financial registration complete. mm15 Administered Medications: 14:04 Drug: GI Cocktail - (Alum-Mag Hydroxide-Simeth Suspension 225 mg-200 mg-25 mg/5 mL 30 pml ml, Lidocaine Liquid 2 % 10 ml, Hyoscyamine Liquid 10 ml) Route: PO; Signatures: Shantel Braden RN RN rs3 Marzena Storm RN RN pml Bobbi Chang mm15 Eliazar Hammond, ANA PEREZ cc10 MTDD
--- NOTE | 2016-04-27 15:22 | EDDOCDS ---
Physician Documentation [facility] Name: Jane Loredo Age: 30 yrs Sex: Female : 1985 Arrival Date: 04/25/2016 Time: 13:38 Bed TR7 Private MD: Disposition: 04/25/16 14:00 Discharged to Home/Self Care. Impression: Abdominal and pelvic pain - epigastric, Gastro-esophageal reflux disease. - Condition is Stable. - Discharge Instructions: Gastroesophageal Reflux Disease, Adult. - Prescriptions for Zantac 300 mg Oral Tablet - take 1 tablet by ORAL route At bedtime; 30 tablet. - Local Pharmacy Hours form. - Follow up: Private Physician; When: Call to arrange an appointment; Reason: Wound/Symptom Recheck, Recheck today's complaints, Worsening of conditions, Continuance of care. - Problem is an ongoing problem. - Symptoms are unchanged. Historical: - Allergies: no known allergies; - Home Meds: 1. none - PMHx: none; - PSHx: Tubal ligation; Cholecystectomy (February 2016); - Social history: Smoking status: Patient states was never smoker of tobacco. No barriers to communication noted, The patient speaks fluent [place]an. - Family history: Not pertinent. - : The pt / caregiver states he / she is not on anticoagulants. Home medication list is obtained from the patient. - Exposure Risk Screening:: None identified. Vital Signs: 04/25 13:40 BP 117 / 76 RA Sitting (auto/lg); Pulse 85; Resp 18; Temp 98.5; Pulse Ox 98% on R/A; bnb Weight 81.65 kg / 180.01 lbs; Height 5 ft. 4 in. (162.56 cm); Pain 7/10; 13:40 Body Mass Index 30.90 (81.65 kg, 162.56 cm) bnb MDM: 13:59 GI Cocktail - (Alum-Mag Hydroxide-Simeth 30 ml, Lidocaine 10 ml, Hyoscyamine 10 ml) PO cc10 once; Pre-mixed 50mL unit dose ordered. 14:06 Financial registration complete. mm15 14:21 [facility] Payment Agreement was scanned into [employer] and attached to record. mm15 19:09 T-Sheet-- Draft Copy was scanned into [employer] and attached to record. klr Administered Medications: 14:04 Drug: GI Cocktail - (Alum-Mag Hydroxide-Simeth Suspension 225 mg-200 mg-25 mg/5 mL 30 pml ml, Lidocaine Liquid 2 % 10 ml, Hyoscyamine Liquid 10 ml) Route: PO; Signatures: Shantel BradenRN RN rs3 Marzena Storm RN RN pml Bernardo Milanasoraya mm15 Eliazar Hammond PA-C PARhea cc10 Reyna Mendiola kljaz The chart was reviewed and I authenticate all verbal orders and agree with the evaluation and treatment provided.Attachments: 14:21 [facility] Payment Agreement mm15 19:09 T-Sheet-- Draft Copy klr Chart Complete MTDD
--- NOTE | 2016-04-27 15:22 | EDDOCDS ---
Physician Documentation [facility] Name: Jane Loredo Age: 30 yrs Sex: Female : 1985 Arrival Date: 04/25/2016 Time: 13:38 Bed TR7 Private MD: Disposition: 04/25/16 14:00 Discharged to Home/Self Care. Impression: Abdominal and pelvic pain - epigastric, Gastro-esophageal reflux disease. - Condition is Stable. - Discharge Instructions: Gastroesophageal Reflux Disease, Adult. - Prescriptions for Zantac 300 mg Oral Tablet - take 1 tablet by ORAL route At bedtime; 30 tablet. - Local Pharmacy Hours form. - Follow up: Private Physician; When: Call to arrange an appointment; Reason: Wound/Symptom Recheck, Recheck today's complaints, Worsening of conditions, Continuance of care. - Problem is an ongoing problem. - Symptoms are unchanged. Historical: - Allergies: no known allergies; - Home Meds: 1. none - PMHx: none; - PSHx: Tubal ligation; Cholecystectomy (February 2016); - Social history: Smoking status: Patient states was never smoker of tobacco. No barriers to communication noted, The patient speaks fluent [place]. - Family history: Not pertinent. - : The pt / caregiver states he / she is not on anticoagulants. Home medication list is obtained from the patient. - Exposure Risk Screening:: None identified. Vital Signs: 04/25 13:40 BP 117 / 76 RA Sitting (auto/lg); Pulse 85; Resp 18; Temp 98.5; Pulse Ox 98% on R/A; bnb Weight 81.65 kg / 180.01 lbs; Height 5 ft. 4 in. (162.56 cm); Pain 7/10; 13:40 Body Mass Index 30.90 (81.65 kg, 162.56 cm) bnb MDM: 13:59 GI Cocktail - (Alum-Mag Hydroxide-Simeth 30 ml, Lidocaine 10 ml, Hyoscyamine 10 ml) PO cc10 once; Pre-mixed 50mL unit dose ordered. 14:06 Financial registration complete. mm15 14:21 [facility] Payment Agreement was scanned into [employer] and attached to record. mm15 19:09 T-Sheet-- Draft Copy was scanned into [employer] and attached to record. klr Administered Medications: 14:04 Drug: GI Cocktail - (Alum-Mag Hydroxide-Simeth Suspension 225 mg-200 mg-25 mg/5 mL 30 pml ml, Lidocaine Liquid 2 % 10 ml, Hyoscyamine Liquid 10 ml) Route: PO; Signatures: Shantel BradenRN RN rs3 Marzena Storm RN RN pml Bernardo Milanasoraya mm15 Eliazar Hammond PA-C PARhea cc10 Reyna Mendiola kljaz The chart was reviewed and I authenticate all verbal orders and agree with the evaluation and treatment provided.Attachments: 14:21 [facility] Payment Agreement mm15 19:09 T-Sheet-- Draft Copy klr Chart Complete MTDD
--- NOTE | 2016-04-27 15:22 | EDDOCDS ---
Nurse's Notes [facility] Name: Jane Loredo Age: 30 yrs Sex: Female : 1985 Arrival Date: 04/25/2016 Time: 13:38 Bed TR7 Private MD: Diagnosis: Abdominal and pelvic pain-epigastric;Gastro-esophageal reflux disease Presentation: 04/25 13:41 Presenting complaint: Patient states: abdominal pain for 4 days. denies rs3 vomiting/diarrhea. radiates to lower back. Risk factors: the patient reports no vaginal bleeding. Adult Sepsis Screening: The patient does not have new or worsening altered mentation. Patient's respiratory rate is less than 22. Systolic blood pressure is greater than 100. Patient has a qSOFA score of 0- Negative Sepsis Screen. Suicide/Homicide risk assessment- the patient denies having any suicidal and/or homicidal ideations and does not present with any other emotional, behavioral or mental health complaints. 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 Transition of care: patient was not received from another setting of care. 13:41 Acuity: ASMI Level 3 rs3 13:41 Method Of Arrival: Walkin/Carried/Asstd rs3 Triage Assessment: 13:43 General: Appears in no apparent distress. Pain: Location: abdomen. HIV screening NA for rs3 this visit Offered previously. GI: Reports lower abdominal pain, upper abd pain. Historical: - Allergies: no known allergies; - Home Meds: 1. none - PMHx: none; - PSHx: Tubal ligation; Cholecystectomy (February 2016); - Social history: Smoking status: Patient states was never smoker of tobacco. No barriers to communication noted, The patient speaks fluent Iraqi. - Family history: Not pertinent. - : The pt / caregiver states he / she is not on anticoagulants. Home medication list is obtained from the patient. - Exposure Risk Screening:: None identified. Screenin:19 Screening information is obtained from the patient. Fall risk: No risks identified. pml Assistance ADL's: requires no assistance with activities of daily living. Abuse/DV Screen: The patient / caregiver reports he/she is: not in a situation that causes fear, pain or injury. Nutritional screening: No deficits noted. Advance Directives: Currently, there is no health care proxy. home support is adequate. Assessment: 14:05 General: Appears in no apparent distress, Behavior is appropriate for age, cooperative. pml Pain: Location: abdomen Pain currently is 6 out of 10 on a pain scale. Neurological: Level of Consciousness is awake, alert, Oriented to person, place, time. Cardiovascular: Capillary refill < 3 seconds. Respiratory: Airway is patent Respiratory effort is even, unlabored. GI: Abdomen is non- distended obese, Bowel sounds present X 4 quads. Abd is soft X 4 quads. Derm: Skin is pink, warm & dry. Vital Signs: 13:40 BP 117 / 76 RA Sitting (auto/lg); Pulse 85; Resp 18; Temp 98.5; Pulse Ox 98% on R/A; bnb Weight 81.65 kg; Height 5 ft. 4 in. (162.56 cm); Pain 7/10; 13:40 Body Mass Index 30.90 (81.65 kg, 162.56 cm) bnb Vitals: 13:40 Log In Time: April 25, 2016 at 13:38. bnb ED Course: 13:39 Patient visited by Jenifer Duarte PCA. bnb 13:39 Patient moved to Waiting bnb 13:41 Patient visited by Jenifer Duarte PCA. bnb 13:41 Patient moved to Pre RCE bnb 13:42 Triage Initiated rs3 13:43 Patient moved to Triage 3 rs3 13:48 Eliazar Hammond PA-C is PHCP. cc10 13:48 Rosi Mercer MD is Attending Physician. cc10 13:55 Patient visited by Eliazar Hammond PA-C. cc10 13:55 Patient visited by Eliazar Hammond PA-C. cc10 14:08 Patient moved to TR7 ar3 14:19 The patient / caregiver is instructed regarding the plan of care and ED course. Patient pml has correct armband on for positive identification. Bed in low position. Call light in reach. 14:19 No IV's were initiated during this patient's visit. No procedures done that require pml assistance. 14:21 [facility] Payment Agreement was scanned into [employer] and attached to record. mm15 19:09 T-Sheet-- Draft Copy was scanned into [employer] and attached to record. klr Administered Medications: 14:04 Drug: GI Cocktail - (Alum-Mag Hydroxide-Simeth Suspension 225 mg-200 mg-25 mg/5 mL 30 pml ml, Lidocaine Liquid 2 % 10 ml, Hyoscyamine Liquid 10 ml) Route: PO; Order Results: There are currently no results for this order. Outcome: 14:00 Discharge ordered by Provider. cc10 14:19 Discharge Assessment: Patient awake, alert and oriented x 3. No cognitive and/or pml functional deficits noted. Patient verbalized understanding of disposition instructions. patient administered narcotics - no. The following High Risk Discharge criteria are identified: None. Discharged to home ambulatory. Condition: good Condition: stable. Discharge instructions given to patient, Instructed on discharge instructions, follow up and referral plans. medication usage, Demonstrated understanding of instructions, medications, Pt was receptive of discharge instructions/ teaching. No special radiology studies were completed. Property sent home with patient. 14:20 Patient left the ED. pml Signatures: Shantel Braden RN RN rs3 Danii Ahn, RELIEF PHARMACIST RELIEF PHARMACIST ar3 Marzena Storm RN RN pml Bobbi Chang mm15 Eliazar Hammond, PA-C PA-C cc10 Reyna Mendiola Brittney, RELIEF PHARMACIST RELIEF PHARMACIST bnb Chart Complete MTDD
== END 2016-04-25 14:20 | disposition home or self-care (01) ==
LOC: M ED 13:38
DX: K21.9 Gastro-esophageal reflux disease without esophagitis (principal); R10.13 Epigastric pain; Z90.49 Acquired absence of other specified parts of digestive tract

== ENCOUNTER 2016-06-01 12:45 | Emergency (ER) | payer OTHER ==
[~2016-06-01] VITALS: Ht 162.6 cm; Wt 81.6 kg
[2016-06-01] MEDS ORDERED: TETANUS/DIPHTHERIA TOX ADSORB ADULT 0.5ML SYR/VIAL (90714) IM ONE (16:45)
[2016-06-01 17:21] VITALS: BP 138/66
== END 2016-06-01 17:25 | disposition home or self-care (01) ==
LOC: M ED 15:49
DX: S61.012A Laceration without foreign body of left thumb without damage to nail, initial encounter (principal); W45.8XXA Other foreign body or object entering through skin, initial encounter; Y92.099 Unspecified place in other non-institutional residence as the place of occurrence of the external cause; Y93.89 Activity, other specified; Y99.9 Unspecified external cause status

== ENCOUNTER → 2022-04-12 | Outpatient (REF) ==
[~2022-04-12] MED LIST changes: -CITA20TA4 PO; +CITA20TA6 PO; -DRIS50002 PO; +DRIS50003 PO
== END ==
LOC: M LAB 10:16
PROVIDERS: ATTEND Nurse Practitioner Adult Health
DX: Z02.1 Encounter for pre-employment examination (principal)